=== PATIENT | male | born 1960 | race Caucasian/White ===

== ENCOUNTER 2016-12-20 17:27 | Emergency (ER) | payer OTHER ==
[~2016-12-20 17:27] MED LIST: Sterile Water Irrigation 250 ML BOT ONE
[2016-12-20] MEDS ORDERED: Morphine 10 MG/ML VIAL ONE (17:37)
[2016-12-20] MEDS ORDERED: ALPRAZolam 0.25 MG TAB ONE (18:09)
[2016-12-20] MEDS ORDERED: Bacitracin Zinc 1 Packet ONE (18:19)
[2016-12-20] MEDS ORDERED: Adacel (T-DAP) 0.5 ML VIAL ONE (18:19)
[2016-12-20] MEDS ORDERED: Cephalexin 500 MG CAP ONE (18:19)
== END 2016-12-20 19:25 | disposition home or self-care (01) ==
LOC: MADERS 17:27
DX: T23.251A Burn of second degree of right palm, initial encounter (principal); T24.202A Burn of second degree of unspecified site of left lower limb, except ankle and foot, initial encounter; T23.131A Burn of first degree of multiple right fingers (nail), not including thumb, initial encounter; I10 Essential (primary) hypertension; Z23 Encounter for immunization; M10.9 Gout, unspecified; E78.00 Pure hypercholesterolemia, unspecified; X08.8XXA Exposure to other specified smoke, fire and flames, initial encounter
CPT/HCPCS: 90471; 90715; 96372; J2270